=== PATIENT | male | born 1930 | race Caucasian/White ===

== ENCOUNTER 2017-02-22 20:02 | Emergency (ER) | payer MEDICARE ==
[~2017-02-22] VITALS: Ht 177.8 cm; Wt 81.6 kg
[2017-02-22 20:18] LABS: BASOPHILS % (AUTO) 0 % (0-10); EOSINOPHILS # (AUTO) 0.3 10^3/uL (0.0-0.3); EOSINOPHILS % (AUTO) 3 % (0-10); LYMPHOCYTES # (AUTO) 3.3 X 10^3 (1.0-4.0); LYMPHOCYTES % (AUTO) 43 % (12-44); MEAN CORPUSCULAR HEMOGLOBIN 29 PG (25-34); MEAN CORPUSCULAR HGB CONC 35 G/DL (32-36); MEAN CORPUSCULAR VOLUME 82 FL (80-99); MEAN PLATELET VOLUME 9.8 FL (7.4-10.4); MONOCYTES # (AUTO) 0.7 X 10^3 (0.0-1.0); MONOCYTES % (AUTO) 9 % (0-12); NEUTROPHILS # (AUTO) 3.4 X 10^3 (1.8-7.8); NEUTROPHILS % (AUTO) 44 % (42-75); PLATELET COUNT 215 10^3/uL (130-400); RED BLOOD COUNT 5.24 10^6/uL (4.35-5.85); RED CELL DISTRIBUTION WIDTH 13.9 % (10.0-14.5); WHITE BLOOD COUNT 7.7 10^3/uL (4.3-11.0)
[2017-02-22 20:27] LABS: PROTHROMBIN TIME PATIENT 13.2 SEC (12.2-14.7)
--- NOTE | 2017-02-22 20:29 | ED Respiratory ---
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 STATES HE NORMALLY "ONLY DRINKS IN THE SUMMER" EMS WAS CALLED TO [facility] FOR "RESPIRATORY DISTRESS", BUT ON THEIR ARRIVAL TO SCENE, PT WAS NOT HAVING ANY COMPLAINTS OF DIFFICULTY BREATHING AND RESPIRATIONS WERE NON-LABORED ACCUCHECK 110 BY EMS PT STATES "IM FINE, I JUST NEED TO REST" AND REPEATS "I'M TIRED, I JUST WANT TO GO TO SLEEP" AND STATES HE DOES NOT KNOW WHY EMS WAS CALLED. PT STATES "I JUST HAVEN'T FELT GOOD FOR A WEEK" STATES HE HAS HAD A PRODUCTIVE COUGH FOR AT LEAST A WEEK, SPUTUM OF UNKNOWN COLOR. NO CHEST PAIN DOES STATE HE FELT SHORT OF BREATH EARLIER, BUT NOT NOW STATES HE HASN'T BEEN ABLE TO SLEEP ALL WEEK PT DENIES ANY HISTORY OF RESPIRATORY PROBLEMS--USED TO SMOKE ABOUT 5 CIGARS A DAY, BUT NO LONGER SMOKES, CANNOT STATE HOW LONG IT HAS BEEN SINCE HE SMOKED. [facility] [place] [facility] C[facility] Allergies and Home Medications Allergies Uncoded Allergies: NSAIDS (Adverse Reaction, Unknown, 02/22/17) Home Medications Benzonatate 100 Mg Capsule, 1-2 TAB PO TID, #30 Prescribed by: KALEY ACUNA on 02/22/172146 Cefdinir 300 Mg Capsule, 300 MG PO BID, #20 Prescribed by: KALEY ACUNA on 02/22/172146 Ondansetron 4 Mg Tab.rapdis, 4 MG PO Q4H, #10 Prescribed by: KALEY ACUNA on 02/22/172146 Constitutional: other (VERY LIMITED DUE TO INTOXICATION) Respiratory: see HPI, cough, short of breath Cardiovascular: No chest pain Psychiatric/Neurological: See HPI (INTOXICATED) Past Gphzuhy-Qusrxz-Vbxeqc Hx Patient Social History Alcohol Use: Occasionally Uses ("ONLY IN THE SUMMER" PER PT ON 02/22/17--YET DRANK HEAVILY ON 02/22/17) Recreational Drug Use: No Smoking Status: Former Smoker (SMOKED 5 CIGARS/DAY--QUIT) Surgeries HX Surgeries: Yes (COLON RESECTION FOR POLYPS; 2 FOOT SURGERIES; 5 KNEE SURGERIES AND 3 KNEE REPLACEMENTS; LEFT SHOULDER REPLACEMENT; RIGHT ROTATOR CUFF SURGERY; TURP X 3) Surgeries: Abdominal, Adenoidectomy, Joint Replacement, Orthopedic, Tonsillectomy, Transurethral Resection Respiratory Hx Respiratory Disorders: No Cardiovascular Hx Cardiac Disorders: Yes Cardiac Disorders: Hypertension Neurological Hx Neurological Disorders: No Reproductive System Hx Reproductive Disorders: No Genitourinary Hx Genitourinary Disorders: Yes Genitourinary Disorders: Benign Prostatic Hyperpl Gastrointestinal Hx Gastrointestinal Disorders: Yes Gastrointestinal Disorders: Polyps Musculoskeletal Hx Musculoskeletal Disorders: Yes (MUTLIPLE ORTHO SURGERIES) Musculoskeletal Disorders: Arthritis Endocrine Hx Endocrine Disorders: Yes (PT STATES DRS HAVE TOLD HIM HE IS DIABETIC, BUT PT REFUSES TO BELIEVE IT, AND HE REFUSES TO TAKE ANY MEDICATION FOR IT OR FOLLOW ANY DIET OR CHECK HIS BLOOD SUGAR--STATES "I EAT WHATEVER I WANT" ) Endocrine Disorders: Diabetes, Non-Insulin dep HEENT HX ENT Disorders: No (GLASSES) Cancer Hx Cancer: No Psychosocial Hx Psychiatric Problems: Yes Behavioral Health Disorders: Depression Integumentary HX Skin/Integumentary Disorder: No Blood Transfusions Hx Blood Disorders: No Physical Exam Vital Signs Vital Sign - Last 12Hours Capillary Refill : General Appearance: WD/WN, no apparent distress, other (APPEARS INTOXICATED. FAINT ODOR OF ETOH; KEEPS EYES CLOSED, SPEECH SLOW BUT ONLY SLIGHTLY SLURRED. 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, no motor/sensory deficits, alert, oriented x 3 Skin: normal color, warm/dry Progress/Results/Core Measures Results/Orders Lab Results Laboratory Tests Test 02/22/17 20:05 02/22/17 20:40 Range/Units White Blood Count 7.7 4.3-11.0 10^3/uL Red Blood Count 5.24 4.35-5.85 10^6/uL Hemoglobin 15.2 13.3-17.7 G/DL Hematocrit 43 40-54 % Mean Corpuscular Volume 82 80-99 FL Mean Corpuscular Hemoglobin 29 25-34 PG Mean Corpuscular Hemoglobin Concent 35 32-36 G/DL Red Cell Distribution Width 13.9 10.0-14.5 % Platelet Count 215 130-400 10^3/uL Mean Platelet Volume 9.8 7.4-10.4 FL Neutrophils (%) (Auto) 44 42-75 % Lymphocytes (%) (Auto) 43 12-44 % Monocytes (%) (Auto) 9 0-12 % Eosinophils (%) (Auto) 3 0-10 % Basophils (%) (Auto) 0 0-10 % Neutrophils # (Auto) 3.4 1.8-7.8 X 10^3 Lymphocytes # (Auto) 3.3 1.0-4.0 X 10^3 Monocytes # (Auto) 0.7 0.0-1.0 X 10^3 Eosinophils # (Auto) 0.3 0.0-0.3 10^3/uL Basophils # (Auto) 0.0 0.0-0.1 10^3/uL Prothrombin Time 13.2 12.2-14.7 SEC INR Comment 1.0 0.8-1.4 Activated Partial Thromboplast Time 34 24-35 SEC Sodium Level 137 135-145 MMOL/L Potassium Level 3.7 3.6-5.0 MMOL/L Chloride Level 103 98-107 MMOL/L Carbon Dioxide Level 20 L 21-32 MMOL/L Anion Gap 14 5-14 MMOL/L Blood Urea Nitrogen 21 H 7-18 MG/DL Creatinine 1.34 H 0.60-1.30 MG/DL Estimat Glomerular Filtration Rate 51 BUN/Creatinine Ratio 16 Glucose Level 122 H 70-105 MG/DL Calcium Level 9.5 8.5-10.1 MG/DL Magnesium Level 2.2 1.8-2.4 MG/DL Total Bilirubin 0.8 0.1-1.0 MG/DL Aspartate Amino Transf (AST/SGOT) 20 5-34 U/L Alanine Aminotransferase (ALT/SGPT) 18 0-55 U/L Alkaline Phosphatase 73 40-136 U/L Total Creatine Kinase 99 30-200 U/L Creatine Kinase MB 2.0 <6.6 NG/ML Troponin I < 0.30 <0.30 NG/ML B-Type Natriuretic Peptide 89.9 <100.0 PG/ML Total Protein 7.0 6.4-8.2 G/DL Albumin 4.0 3.2-4.5 G/DL TSH [place] Testing 1.67 0.35-4.94 UIU/ML Serum Alcohol 193 H <10 MG/DL Urine Color YELLOW Urine Clarity CLEAR Urine pH 5 5-9 Urine Specific [place] 1.010 L 1.016-1.022 Urine Protein 3+ H NEGATIVE Urine Glucose (UA) NEGATIVE NEGATIVE Urine Ketones NEGATIVE NEGATIVE Urine Nitrite NEGATIVE NEGATIVE Urine Bilirubin NEGATIVE NEGATIVE Urine Urobilinogen NORMAL NORMAL MG/DL Urine Leukocyte Esterase NEGATIVE NEGATIVE Urine RBC (Auto) NEGATIVE NEGATIVE Urine RBC NONE /HPF Urine WBC NONE /HPF Urine Squamous Epithelial Cells RARE /HPF Urine Crystals NONE /LPF Urine Bacteria NONE /HPF Urine Casts NONE /LPF Urine Mucus NEGATIVE /LPF Urine Culture Indicated NO Urine Opiates Screen NEGATIVE NEGATIVE Urine Oxycodone Screen NEGATIVE NEGATIVE Urine Methadone Screen NEGATIVE NEGATIVE Urine Propoxyphene Screen NEGATIVE NEGATIVE Urine Barbiturates Screen NEGATIVE NEGATIVE Ur Tricyclic Antidepressants Screen NEGATIVE NEGATIVE Urine Phencyclidine Screen NEGATIVE NEGATIVE Urine Amphetamines Screen NEGATIVE NEGATIVE Urine Methamphetamines Screen NEGATIVE NEGATIVE Urine Benzodiazepines Screen NEGATIVE NEGATIVE Urine Cocaine Screen NEGATIVE NEGATIVE Urine Cannabinoids Screen NEGATIVE NEGATIVE Micro Results Microbiology 02/22/17 Influenza Types A,B Antigen ([facility]OR[facility]) - Final, Complete My Orders Orders - KALEY ACUNA DO Saline Lock/Iv-Start (02/22/17 20:11) Ekg Tracing (02/22/17 20:11) Monitor-Rhythm Ecg Trace Only (02/22/17 20:11) Alcohol (02/22/17 20:11) BNP (02/22/17 20:11) Cbc With Automated Diff (02/22/17 20:11) Comprehensive Metabolic Panel (02/22/17 20:11) Creatine Kinase (02/22/17 20:11) Creatine Kinase Mb (02/22/17 20:11) Drug Screen Stat (Urine) (02/22/17 20:11) Magnesium (02/22/17 20:11) Protime With Inr (02/22/17 20:11) Partial Thromboplastin Time (02/22/17 20:11) Thyroid Analyzer (02/22/17 20:11) Troponin I (02/22/17 20:11) Ua Culture If Indicated (02/22/17 20:11) Blood Culture (02/22/17 20:11) Influenza A And B Antigens (02/22/17 20:11) Chest 1 View, Ap/Pa Only (02/22/17 20:11) Ondansetron Injection (Zofran Injectio (02/22/17 21:30) Ceftriaxone Injection (Rocephin Injectio (02/22/17 21:30) Medications Given in ED Current Medications Medications Dose Ordered Sig/Lesia Route Start Time Stop Time Status Last Admin Dose Admin Ceftriaxone Sodium 1000 mg/ Sodium Chloride 50 ml @ 100 mls/hr ONCE ONCE IV 02/22/17 21:30 02/22/17 21:59 DC 02/22/17 21:37 100 MLS/HR Ondansetron HCl 8 mg ONCE ONCE IVP 02/22/17 21:30 02/22/17 21:31 DC 02/22/17 21:37 8 MG Vital Signs/I&O Vital Sign - Last 12Hours 02/22/17 02/22/17 02/22/17 20:02 20:02 22:16 Temp 96.3 96.3 Pulse 60 53 Resp 20 14 B/P (MAP) 174/88 Pulse Ox 94 94 O2 Delivery Room Air Room Air Intake and Output 02/23/17 00:00 Intake Total 50 ml Balance 50 ml Progress Note : Progress Note NO COUGH OR DYSPNEA AT ANY TIME DID HAVE NAUSEA LATER IN ER STAY, RELIEVED WITH ZOFRAN NO DETERIORATION IN PT'S CONDITION DURING ER STAY ECG Initial ECG Impression Time: 20:16 Initial ECG Rate: 61 Initial ECG Rhythm: Normal Sinus Initial ECG Impression: Normal Initial ECG Comparisson: No Previous ECG Available Diagnostic Imaging Comments CXR--NO ACUTE PROCESS, PENDING RADIOLOGIST REVIEW Reviewed: Reviewed by Me Departure Impression Impression: Primary Impression: Bronchitis Additional Impression: Alcohol intoxication Disposition: 01 HOME, SELF-CARE Condition: Stable Departure-Patient Inst. Patient Instructions: Acute Bronchitis, Adult (DC) Add. Discharge Instructions: NO ALCOHOL TYLENOL AND MOTRIN NEEDED FOR PAIN OR FEVER ROBITUSSIN DM FOR COUGH FOLLOW UP WITH YOUR DR IN 2-3 DAYS IF NO BETTER Scripts Ondansetron (Zofran Odt) 4 Mg Tab.rapdis 4 MG PO Q4H for Nausea/Vomiting, #10 TAB Prov: KALEY ACUNA DO 02/22/17 Benzonatate (Tessalon Perle) 100 Mg Capsule 1-2 TAB PO TID for Cough, #30 CAP Prov: KALEY ACUNA DO 02/22/17 Cefdinir (Cefdinir) 300 Mg Capsule 300 MG PO BID for FOR INFECTION, #20 CAP Prov: KALEY ACUNA DO 02/22/17 KALEY ACUNA DO February 22, 2017 20:29
[2017-02-22 20:51] LABS: ALANINE AMINOTRANSFERASE 18 U/L (0-55); ALCOHOL 193 MG/DL (<10); ANION GAP 14 MMOL/L (5-14); ASPARTATE AMINO TRANSFERASE 20 U/L (5-34); BILIRUBIN,TOTAL 0.8 MG/DL (0.1-1.0); BLOOD UREA NITROGEN 21 MG/DL (7-18); BUN/CREATININE RATIO 16; CALCIUM 9.5 MG/DL (8.5-10.1); CARBON DIOXIDE 20 MMOL/L (21-32); CHLORIDE 103 MMOL/L (98-107); CREATINE KINASE 99 U/L (30-200); CREATININE SERUM 1.34 MG/DL (0.60-1.30); GFR ESTIMATED 51; GLUCOSE 122 MG/DL (70-105); MAGNESIUM 2.2 MG/DL (1.8-2.4); POTASSIUM 3.7 MMOL/L (3.6-5.0); SODIUM 137 MMOL/L (135-145)
[2017-02-22 20:54] LABS: BILIRUBIN,URINE NEGATIVE (NEGATIVE); KETONES,URINE NEGATIVE (NEGATIVE); LEUKOCYTE ESTERASE ,URINE NEGATIVE (NEGATIVE); NITRITE,URINE NEGATIVE (NEGATIVE); PH,URINE 5 (5-9); PROTEIN,URINE 3+ (NEGATIVE); UROBILINOGEN,URINE NORMAL (NORMAL)
[2017-02-22 21:02] LABS: SQUAMOUS EPITHELIAL CELL,UR RARE /HPF
[2017-02-22 21:11] LABS: TROPONIN I < 0.30 NG/ML (<0.30)
--- NOTE | 2017-02-22 21:18 | Diagnostic Imaging Report ---
INDICATION: Shortness of breath, cough.. TECHNIQUE: Single-view chest at 08:59 p.m. CORRELATION STUDY: None. FINDINGS: Heart size is borderline. Vasculature is within normal limits. There is some fullness of the right hilum. Lung chavez are generally clear without definitive infiltrate. Reverse arthroplasty hardware at the left shoulder. IMPRESSION: 1. Borderline heart size without vascular congestion. 2. Fullness of the right hilum. This may be owing to tortuous course of the ascending aorta, possibility of adenopathy or mass lesion not excluded. Short-term follow-up two-view chest imaging recommended for reassessment. Dictated by: Dictated on workstation # [id number]
[2017-02-22] MEDS ORDERED: cefTRIAXone INJECTION 1,000 MG in NS (IVPB) 50 ML IV ONE (21:30)
[2017-02-22] MEDS ORDERED: ONDANSETRON 4 MG/2 ML (SDV) Z0FRAN IVP ONE (21:30)
[2017-02-22] MEDS ORDERED: CEFD300C3 PO (21:47)
[2017-02-22] MEDS ORDERED: ONDA4TAB8 PO (21:47)
[2017-02-22] MEDS ORDERED: BENZ-13 PO (21:47)
[2017-02-22 22:16] VITALS: BP 107/53
== END 2017-02-22 22:16 | disposition home or self-care (01) ==
LOC: ER 20:06
DX: J40 Bronchitis, not specified as acute or chronic (principal); F10.129 Alcohol abuse with intoxication, unspecified; Z87.891 Personal history of nicotine dependence; I10 Essential (primary) hypertension
CPT/HCPCS: 36415; 71010; 80053; 80306; 80320; 81000; 82550; 82553; 83735; 83880; 84443; 84484; 85025; 85610; 85730; 87040; 87804; 93005; 93041; 96374; 96375